=== PATIENT | female | born 2000 | race Hispanic/Latino ===

== ENCOUNTER 2019-03-08 01:02 | Emergency (ER) | payer MEDICAID, SELFPAY ==
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
== END 2019-03-08 05:50 | disposition home or self-care (01) ==
LOC: ERS 01:02
DX: J45.901 Unspecified asthma with (acute) exacerbation (principal); F10.129 Alcohol abuse with intoxication, unspecified; F41.0 Panic disorder [episodic paroxysmal anxiety]; Z77.22 Contact with and (suspected) exposure to environmental tobacco smoke (acute) (chronic)
CPT/HCPCS: 96360

== ENCOUNTER 2019-03-23 04:28 | Emergency (ER) | payer MEDICAID, SELFPAY ==
[2019-03-23] MEDS ORDERED: predniSONE 20 MG TAB ONE (05:10)
[2019-03-23] MEDS ORDERED: Ondansetron ODT 8 MG TAB ONE (05:14)
[2019-03-23 05:52] LABS: #Basophils 0.1 thou/uL (0.0-0.2); #Eosinphils 0.2 thou/uL (0.0-0.7); #Lymphocytes 2.5 thou/uL (1.20-3.40); #Monocytes 0.3 thou/uL (0.11-0.59); #Neutrophils 3.9 thou/uL (1.40-6.50); %Basophils 1.3 % (0.0-1.0); %Eosinophils 2.4 % (0.0-10.0); %Lymphocytes 35.2 % (28.0-48.0); %Monocytes 4.8 % (0.0-4.0); %Neutrophils 56.3 % (31.0-61.0); Hemoglobin 12.6 g/dL (12.0-16.0); Mean Corpuscular HGB CONC 34.1 g/dL (32.0-36.0); Mean Corpuscular Volume 93.9 fL (78.0-98.0); Mean Platelet Volume 7.1 fL (7.4-10.4); Platelet Count 324 thou/uL (130-400); RBC Distribution Width 12.3 % (11.5-14.5); Red Blood Cell (RBC) Count 3.92 mill/uL (4.00-5.20)
[2019-03-23 05:54] LABS: BHCG - Serum Negative (NEGATIVE); Pregs Control Background? CLEAR/WHITE (CLR/WHITE); Pregs Control Bar Appear? YES (CONTROL BAR)
[2019-03-23 06:05] LABS: Albumin 4.5 g/dL (3.5-5.0)
[2019-03-23 06:06] LABS: Chloride 107 mmol/L (98-107); Potassium 3.5 mmol/L (3.5-5.1); Sodium 141 mmol/L (136-145)
[2019-03-23 06:07] LABS: Globulin 3.3 g/dL (2.4-3.5); Glucose 125 mg/dL (70-105); Protein, Total 7.8 g/dL (6.0-8.3)
[2019-03-23 06:09] LABS: Anion Gap 15 mmol/L (10-20); Bilirubin, Total 0.5 mg/dL (0.2-1.2); Carbon Dioxide 23 mmol/L (22-29)
[2019-03-23 06:10] LABS: Alkaline Phosphatase 75 U/L (40-150); Calc. Creatinine Clearance 0 mL/min (70-130); Estimated GFR-MDRD 86
[2019-03-23 06:11] LABS: BUN (Urea Nitrogen) 5 mg/dL (7.0-18.7)
[2019-03-23 06:12] LABS: AST (SGOT) 18 U/L (5-34)
[2019-03-23 06:13] LABS: ALT (SGPT) 21 U/L (8-55)
[2019-03-23] MEDS ORDERED: Ketorolac Tromethamine 60 MG/2 ML VIAL ONE (06:19)
[2019-03-23 06:45] LABS: Bilirubin Negative (Negative); Blood, Urine Small (Negative); Glucose, Urine (Dipstick) Negative (Negative); Leukocyte Trace (Negative); Nitrite Negative (Negative); Protein, Urine (Dipstick) Negative (Neg-Trace); Urobilinogen 0.2 mg/dL (Less than 2)
[2019-03-23 06:49] LABS: Pregnancy Test - Urine (BHCG) Negative (Negative); Pregu Control Background? CLEAR/WHITE (CLR/WHITE); Pregu Control Bar Appear? YES (CONTROL BAR); Specific Gravity 1.004 (1.002-1.036)
[2019-03-23 06:57] LABS: RBC/HPF 0-3 HPF (0-3); Squamous Epithelial 0-3 HPF (0-3); WBC/HPF 0-3 HPF (0-3)
[2019-03-23 06:58] LABS: Bacteria/HPF 1+ HPF (None Seen); Clarity Clear (Clear)
[2019-03-23 06:59] LABS: Amphetamine Not Detected (NotDetected); Barbiturates Screen Not Detected (NotDetected); Benzodiazepine Screen Not Detected (NotDetected); Cocaine Metabolite Screen Not Detected (NotDetected); Medtox Control Line Valid? VALID (VALID); Medtox Reader # READER 4; Methadone Not Detected (NotDetected); Methamphetamine Not Detected (NotDetected); Opiate Screen Not Detected (NotDetected); Oxycodone Screen Not Detected (NotDetected); Phencyclidine (PCP) Not Detected (NotDetected); THC/Cannabinoid Screen Not Detected (NotDetected); Tricyclic Screen Not Detected (NotDetected)
[2019-03-23] MEDS ORDERED: Metoclopramide HCl 10 MG/2 ML VIAL ONE (07:20)
--- NOTE | 2019-03-23 07:55 | RAD ---
Portable frontal chest radiograph: 03/23/2019 COMPARISON: 02/22/2019 HISTORY: Asthma exacerbation FINDINGS: Lungs are clear. Heart and mediastinal contours appear within normal limits. IMPRESSION: No acute findings.
[2019-03-23 08:26] LABS: Acetaminophen Less than 6.0 mcg/mL (10.0-30.0); Alcohol 134 mg/dL (Less than 10); Salicylate Less than 8.0 mg/dL (15.0-30.0)
[2019-03-23] MEDS ORDERED: Acetaminophen 500 MG TAB ONE (09:19)
[2019-03-23] MEDS ORDERED: Activated Charcoal/Sorbitol 25 GM/120 ML TUBE ONE (12:36)
== END 2019-03-23 10:30 | disposition home or self-care (01) ==
LOC: ERS 04:28
DX: J45.901 Unspecified asthma with (acute) exacerbation (principal); F10.129 Alcohol abuse with intoxication, unspecified; F41.9 Anxiety disorder, unspecified; Z79.899 Other long term (current) drug therapy; Z79.51 Long term (current) use of inhaled steroids
CPT/HCPCS: 36415; 71045; 80053; 80306; 80307; 81003; 81015; 81025; 82550; 84443; 84703; 85025; 93005; 94640; 96365; 96372; J1885; J2765; J7512; J7620

== ENCOUNTER 2019-05-30 16:20 | Emergency (ER) | payer SELFPAY ==
[2019-05-30 17:17] LABS: #Basophils 0.1 thou/uL (0.0-0.2); #Eosinphils 0.1 thou/uL (0.0-0.7); #Monocytes 0.3 thou/uL (0.11-0.59); #Neutrophils 4.7 thou/uL (1.40-6.50); %Basophils 1.3 % (0.0-1.0); %Eosinophils 1.9 % (0.0-10.0); %Lymphocytes 27.2 % (28.0-48.0); %Monocytes 4.4 % (0.0-4.0); %Neutrophils 65.3 % (31.0-61.0); Hemoglobin 12.5 g/dL (12.0-16.0); Mean Corpuscular HGB CONC 33.6 g/dL (32.0-36.0); Mean Corpuscular Hemoglobin 30.5 pg (25.0-35.0); Mean Corpuscular Volume 90.8 fL (78.0-98.0); Mean Platelet Volume 7.4 fL (7.4-10.4); Platelet Count 314 thou/uL (130-400); RBC Distribution Width 11.7 % (11.5-14.5); Red Blood Cell (RBC) Count 4.09 mill/uL (4.00-5.20); White Blood Cell (WBC) Count 7.2 thou/uL (4.8-10.8)
[2019-05-30 17:27] LABS: BHCG - Serum Negative (NEGATIVE); Pregs Control Background? CLEAR/WHITE (CLR/WHITE); Pregs Control Bar Appear? YES (CONTROL BAR)
[2019-05-30 17:32] LABS: Bilirubin Negative (Negative); Blood, Urine Negative (Negative); Clarity Clear (Clear); Glucose, Urine (Dipstick) Normal (Negative); Leukocyte 75 Leu/uL (Negative); Nitrite Negative (Negative); Protein, Urine (Dipstick) Negative (Neg-Trace); RBC/HPF 0-3 HPF (0-3); Squamous Epithelial 0-3 HPF (0-3)
[2019-05-30 17:34] LABS: Pregnancy Test - Urine (BHCG) Negative (Negative); Pregu Control Background? CLEAR/WHITE (CLR/WHITE); Pregu Control Bar Appear? YES (CONTROL BAR); Specific Gravity 1.026 (1.002-1.036)
[2019-05-30 17:38] LABS: ALT (SGPT) 25 U/L (8-55); AST (SGOT) 17 U/L (5-34); Albumin 4.7 g/dL (3.5-5.0); Alkaline Phosphatase 69 U/L (40-100); Anion Gap 11 mmol/L (10-20); BUN (Urea Nitrogen) 9 mg/dL (7.0-18.7); Bilirubin, Total 1.1 mg/dL (0.2-1.2); Calc. Creatinine Clearance 0 mL/min (70-130); Calcium 9.4 mg/dL (7.8-10.44); Carbon Dioxide 27 mmol/L (22-29); Chloride 103 mmol/L (98-107); Estimated GFR-MDRD Greater than 90; Globulin 3.6 g/dL (2.4-3.5); Glucose 92 mg/dL (70-105); Potassium 3.9 mmol/L (3.5-5.1); Protein, Total 8.3 g/dL (6.0-8.3); Sodium 137 mmol/L (136-145)
[2019-05-30 17:41] LABS: Bacteria/HPF 2+ HPF (None Seen)
== END 2019-05-30 18:20 | disposition home or self-care (01) ==
LOC: ERS 16:20
DX: R10.30 Lower abdominal pain, unspecified (principal); J45.909 Unspecified asthma, uncomplicated; F41.9 Anxiety disorder, unspecified; Z79.899 Other long term (current) drug therapy; Z79.51 Long term (current) use of inhaled steroids
CPT/HCPCS: 36415; 80053; 81003; 81015; 81025; 84703; 85025; 99284

== ENCOUNTER 2019-06-30 10:11 | Emergency (ER) | payer SELFPAY ==
[2019-06-30 12:56] LABS: #Eosinphils 0.1 thou/uL (0.0-0.7); #Lymphocytes 1.5 thou/uL (1.20-3.40); #Monocytes 0.4 thou/uL (0.11-0.59); #Neutrophils 4.9 thou/uL (1.40-6.50); %Basophils 0.2 % (0.0-1.0); %Eosinophils 1.6 % (0.0-10.0); %Lymphocytes 22.1 % (28.0-48.0); %Monocytes 5.4 % (0.0-4.0); %Neutrophils 70.7 % (31.0-61.0); Hemoglobin 12.8 g/dL (12.0-16.0); Mean Corpuscular HGB CONC 34.8 g/dL (32.0-36.0); Mean Corpuscular Hemoglobin 31.3 pg (25.0-35.0); Mean Corpuscular Volume 89.9 fL (78.0-98.0); Platelet Count 259 thou/uL (130-400); Red Blood Cell (RBC) Count 4.08 mill/uL (4.00-5.20); White Blood Cell (WBC) Count 6.9 thou/uL (4.8-10.8)
[2019-06-30 13:01] LABS: BHCG - Serum Negative (NEGATIVE); Pregs Control Background? CLEAR/WHITE (CLR/WHITE); Pregs Control Bar Appear? YES (CONTROL BAR)
[2019-06-30] MEDS ORDERED: Ondansetron PF 4 MG/2 ML Vial ONE (13:01)
[2019-06-30 13:08] LABS: Bilirubin Negative (Negative); Blood, Urine Negative (Negative); Clarity Clear (Clear); Glucose, Urine (Dipstick) Normal (Negative); Leukocyte Negative Leu/uL (Negative); Nitrite Negative (Negative); Protein, Urine (Dipstick) 20 mg/dL (Neg-Trace)
[2019-06-30 13:13] LABS: ALT (SGPT) 23 U/L (8-55); AST (SGOT) 22 U/L (5-34); Albumin 4.9 g/dL (3.5-5.0); Alkaline Phosphatase 68 U/L (40-100); Anion Gap 13 mmol/L (10-20); BUN (Urea Nitrogen) 11 mg/dL (7.0-18.7); Bilirubin, Total 1.2 mg/dL (0.2-1.2); Calc. Creatinine Clearance 0 mL/min (70-130); Calcium 9.5 mg/dL (7.8-10.44); Carbon Dioxide 25 mmol/L (22-29); Chloride 103 mmol/L (98-107); Estimated GFR-MDRD Greater than 90; Globulin 3.5 g/dL (2.4-3.5); Glucose 80 mg/dL (70-105); Lipase 17 U/L (8-78); Potassium 3.8 mmol/L (3.5-5.1); Protein, Total 8.4 g/dL (6.0-8.3); Sodium 137 mmol/L (136-145)
[2019-06-30] MEDS ORDERED: Promethazine HCl 25 MG/ML VIAL ONE (13:56)
== END 2019-06-30 15:31 | disposition home or self-care (01) ==
LOC: ERS 10:11
DX: R11.2 Nausea with vomiting, unspecified (principal); J45.909 Unspecified asthma, uncomplicated; F41.9 Anxiety disorder, unspecified; Z79.899 Other long term (current) drug therapy
CPT/HCPCS: 36415; 80053; 81003; 83690; 84703; 85025; 96361; 96374; 96375; J2405; J2550

== ENCOUNTER 2019-11-15 22:10 | Emergency (ER) | payer BC ==
[2019-11-15 23:28] LABS: #Eosinphils 0.2 thou/uL (0.0-0.7); #Monocytes 0.6 thou/uL (0.11-0.59); #Neutrophils 5.5 thou/uL (1.40-6.50); %Basophils 0.5 % (0.0-1.0); %Eosinophils 2.5 % (0.0-10.0); %Lymphocytes 23.9 % (21.0-51.0); %Monocytes 6.8 % (0.0-10.0); %Neutrophils 66.3 % (42.0-75.0); Hemoglobin 11.3 g/dL (12.0-16.0); Mean Corpuscular HGB CONC 33.9 g/dL (32.0-36.0); Mean Corpuscular Hemoglobin 32.8 pg (27.0-31.0); Mean Corpuscular Volume 96.8 fL (78.0-98.0); Mean Platelet Volume 7.3 fL (7.4-10.4); Platelet Count 252 thou/uL (130-400); RBC Distribution Width 11.9 % (11.5-14.5); Red Blood Cell (RBC) Count 3.44 mill/uL (4.20-5.40); White Blood Cell (WBC) Count 8.4 thou/uL (4.8-10.8)
[2019-11-15 23:34] LABS: BHCG - Serum POSITIVE (NEGATIVE); Pregs Control Background? CLEAR/WHITE (CLR/WHITE); Pregs Control Bar Appear? YES (CONTROL BAR)
[2019-11-15 23:39] LABS: Bilirubin Negative (Negative); Blood, Urine Trace (Negative); Clarity Clear (Clear); Glucose, Urine (Dipstick) Normal (Negative); Leukocyte 25 Leu/uL (Negative); Nitrite Negative (Negative); Protein, Urine (Dipstick) 20 mg/dL (Neg-Trace); WBC/HPF 0-3 HPF (0-3)
[2019-11-15] MEDS ORDERED: Ondansetron PF 4 MG/2 ML Vial ONE (23:45)
[2019-11-15 23:46] LABS: Bacteria/HPF 1+ HPF (None Seen)
[2019-11-15] MEDS ORDERED: Morphine 4 MG/ML VIAL ONE (23:46)
[2019-11-15 23:50] LABS: ALT (SGPT) 23 U/L (8-55); AST (SGOT) 18 U/L (5-34); Albumin 4.7 g/dL (3.5-5.0); Alkaline Phosphatase 66 U/L (40-110); Anion Gap 12 mmol/L (10-20); BUN (Urea Nitrogen) 9 mg/dL (7.0-18.7); Bilirubin, Total 0.4 mg/dL (0.2-1.2); Calc. Creatinine Clearance 0 mL/min (70-130); Calcium 8.9 mg/dL (7.8-10.44); Carbon Dioxide 23 mmol/L (22-29); Chloride 107 mmol/L (98-107); Estimated GFR-MDRD Greater than 90; Globulin 3.4 g/dL (2.4-3.5); Glucose 82 mg/dL (70-105); Potassium 3.6 mmol/L (3.5-5.1); Protein, Total 8.1 g/dL (6.0-8.3); Sodium 138 mmol/L (136-145)
--- NOTE | 2019-11-16 00:10 | ULT ---
Exam: Transabdominal and endovaginal pelvic ultrasound HISTORY:Right lower quadrant pain, x3 days. Nausea, vomiting and constipation COMPARISON: None TECHNIQUE: Transabdominal and endovaginal imaging of the pelvis is performed. Ovaries are interrogate d with grayscale, color flow, Doppler imaging and spectral wave form analysis FINDINGS: Uterus: No myometrial masses. Uterus measurin.4 x 5.1 x 6.0 cm. Endometrium: There is a gestational sac, yolk sac and pole. [place]-rump length is 0.84 cm corres ponding to gestational age of 6 weeks 6 days heart tones: 131 bpm Subchorionic hemorrhage: None. Free fluid: None Right ovary: Normal echotexture Right ovary measurement: 2.6 x 1.4 x 1.9 cm Left ovary: Normal echotexture. Left ovary measurements: 2.0 x 3.3 x 2.1 cm Ovarian Doppler: There is vascular flow to the left and right ovary. IMPRESSION: 1. Single intrauterine gestation with heart tones. 2. Gestational age by crown-rump length is 6 weeks 6 days.
--- NOTE | 2019-11-16 09:03 | MRI ---
PRELIMINARY REPORT/[facility]/EMERGENCY AFTER HOURS PROCEDURE EXAM: MR Abdomen and Pelvis without IV contrast. CLINICAL HISTORY: RLQ ABD PAIN. POSITIVE TEST. NAUSEA, VOMITING, CONSTIPATION TECHNIQUE: Multisequence, multiplanar magnetic resonance images of the abdomen and pelvis without intravenous co ntrast. Series acquired: 2 - T2_HASTE_COR_MBH - 45 imgs - ABDOMEN - TR: 1000.0 - TE: 114.0 - ET: 256.0 - Thk: 3.5 3 - T2_HASTE_TRA_MBH - 37 imgs - ABDOMEN - TR: 1130.0 - TE: 115.0 - ET: 256.0 - Thk: 5.0 5 - T2_HASTE_SAG_MBH - 34 imgs - ABDOMEN - TR: 779.0 - TE: 118.0 - ET: 256.0 - Thk: 4.5 6 - T2_HASTE_TRA_MBH_FS - 37 imgs - ABDOMEN - TR: 1140.0 - TE: 115.0 - ET: 256.0 - Thk: 5.0 11 - EP2D_DIFF_B50_100_800_TRA_P2_BH - 45 imgs - ABDOMEN - TR: 1700.0 - TE: 80.0 - ET: 1.0 - Thk: 6. 0 12 - EP2D_DIFF_B50_100_800_TRA_P2_BH_ADC - 15 imgs - ABDOMEN - TR: 1700.0 - TE: 80.0 - ET: 1.0 - Thk : 6.0 13 - EP2D_DIFF_B50_100_800_TRA_P2_BH - 45 imgs - ABDOMEN - TR: 1700.0 - TE: 80.0 - ET: 1.0 - Thk: 6. 0 14 - EP2D_DIFF_B50_100_800_TRA_P2_BH_ADC - 15 imgs - ABDOMEN - TR: 1700.0 - TE: 80.0 - ET: 1.0 - Thk : 6.0 15 - EP2D_DIFF_B50_100_500_TRA_P2_BH - 45 imgs - ABDOMEN - TR: 1600.0 - TE: 75.0 - ET: 1.0 - Thk: 6. 0 16 - EP2D_DIFF_B50_100_500_TRA_P2_BH_ADC - 15 imgs - ABDOMEN - TR: 1600.0 - TE: 75.0 - ET: 1.0 - Thk : 6.0 17 - EP2D_DIFF_B50_100_500_TRA_P2_BH - 45 imgs - ABDOMEN - TR: 1700.0 - TE: 75.0 - ET: 1.0 - Thk: 6. 0 18 - EP2D_DIFF_B50_100_500_TRA_P2_BH_ADC - 15 imgs - ABDOMEN - TR: 1700.0 - TE: 75.0 - ET: 1.0 - Thk : 6.0 CONTRAST: Without COMPARISON: None provided. FINDINGS: Single intrauterine gestational sac visualized. Normal appearance of both ovaries. Trace amount of free fluid in the pelvis. The appendix is normal in appearance. No inflammatory changes in the right lower quadrant. The T2 appearance of the visualized abdominal viscera is normal. The visualized bones are unremarkable. IMPRESSION: Gravid uterus. Normal appendix. No inflammatory changes in the right lower quadrant. Trace free fluid in the pelvi s which may be physiologic. ELECTRONICALLY SIGNED BY: Asya Benton MD November 16, 2019 1:45:25 AM CDT This report is intended for review by the ordering physician only, in accordance of law. If you recei ve this report in error, please call [facility] at [phone]. FINAL REPORT MRI ABDOMEN WITHOUT CONTRAST: I agree with the preliminary report given by Dr. Asya Benton of [facility].
== END 2019-11-16 02:28 | disposition home or self-care (01) ==
LOC: ERS 22:10
DX: O99.89 Other specified diseases and conditions complicating pregnancy, childbirth and the puerperium (principal); R10.31 Right lower quadrant pain; O99.511 Diseases of the respiratory system complicating pregnancy, first trimester; J45.909 Unspecified asthma, uncomplicated; O99.341 Other mental disorders complicating pregnancy, first trimester; F41.9 Anxiety disorder, unspecified; Z77.22 Contact with and (suspected) exposure to environmental tobacco smoke (acute) (chronic); Z79.899 Other long term (current) drug therapy; Z3A.12 12 weeks gestation of pregnancy
CPT/HCPCS: 36415; 74181; 76856; 80053; 81003; 81015; 84702; 84703; 85025; 86900; 86901; 96374; 96375; J2270; J2405

== ENCOUNTER 2019-12-15 00:03 | Emergency (ER) | payer BC ==
[2019-12-15] MEDS ORDERED: Fentanyl 100 MCG/2 ML VIAL ONE (00:31)
[2019-12-15] MEDS ORDERED: Promethazine HCl 25 MG/ML VIAL ONE (01:45)
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
== END 2019-12-15 04:08 | disposition home or self-care (01) ==
LOC: ERS 00:03
DX: O9A.211 Injury, poisoning and certain other consequences of external causes complicating pregnancy, first trimester (principal); S16.1XXA Strain of muscle, fascia and tendon at neck level, initial encounter; S46.912A Strain of unspecified muscle, fascia and tendon at shoulder and upper arm level, left arm, initial encounter; O99.511 Diseases of the respiratory system complicating pregnancy, first trimester; J45.909 Unspecified asthma, uncomplicated; O99.341 Other mental disorders complicating pregnancy, first trimester; F41.9 Anxiety disorder, unspecified; Z77.22 Contact with and (suspected) exposure to environmental tobacco smoke (acute) (chronic); Z3A.12 12 weeks gestation of pregnancy
CPT/HCPCS: 71045; 72040; 72070; 96365; 96366; 96375; J2550; J3010

== ENCOUNTER 2020-04-07 06:46 | Outpatient (CLI) | payer BC, MEDICAID ==
--- NOTE | 2020-04-07 08:55 | ULT ---
EXAM: OB ultrasound COMPARISON: None HISTORY: female patient. Evaluate anatomy and cervical length. TECHNIQUE: Multiplanar grayscale and color Doppler transabdominal sonographic images are obtained. FINDINGS: There is a single intrauterine gestation in cephalic presentation. Cardiac Doppler demonstr ates heart tones with a heart rate of 132 beats per minute. The placenta is located posteriorly without evidence of placenta previa. There is a normal amount of amniotic fluid with an a mniotic fluid index of 18.74 centimeters. The cervical length based on transabdominal imaging measures 4.6 centimeters. biometry measurements: BPD 7.68 cm -- 30 weeks 6 days HC 27.09 cm -- 29 weeks 4 days AC 24.27 cm -- 28 weeks 4 days FL 5.54 cm -- 28 weeks 6 days The estimated gestational age by ultrasound is 29 weeks 4 days with an YUSRA on06/19/2020. Gestational age by the last menstrual period is 29 weeks. The estimated weight by ultrasound is 1296 g (2 pounds, 14 ounces). This represents 32 percenti le for weight. The heart is difficult to visualize, there is suggestion of a 4 chambered heart. The cerebellum, visu alized portions of the spine, kidneys, urinary bladder, and cord insertion demonstrate a normal sonographic appearance. A three-vessel cord is not visualized, but there is flow on either side of the urinary bladder sugges ting a three-vessel cord.. No anomalies are seen. Adnexal structures are not well visualized on this exam, and only shadowing from bowel gas is seen. IMPRESSION: 1. Single intrauterine gestation in cephalic presentation with heart tones documented. Estimat ed gestational age by ultrasound is 29 weeks 4 days with YUSRA on 06/19/2020. 2. Estimated weight is 1296 g (2 pounds, 14 ounces). 3. Amniotic fluid index is 18.74 centimeters.
== END 2020-04-07 06:47 | disposition home or self-care (01) ==
LOC: BICULT 06:46
PROVIDERS: ATTEND Nurse Practitioner
DX: Z34.03 Encounter for supervision of normal first pregnancy, third trimester (principal); Z3A.29 29 weeks gestation of pregnancy
CPT/HCPCS: 76805

== ENCOUNTER 2020-04-09 20:50 | Day surgery (SDC) | payer BC, OTHER ==
[2020-04-09 20:56] VITALS: BMI 35.2
[2020-04-09 20:58] VITALS: BP 135/75
[2020-04-09] MEDS ORDERED: hydrALAZINE 20 MG/ML VIAL SLOW IVP PRN (21:39)
[2020-04-09 22:09] LABS: Bacteria/HPF None Seen HPF (None Seen); Bilirubin Negative (Negative); Blood, Urine Negative (Negative); Clarity Turbid (Clear); Glucose, Urine (Dipstick) Normal (Negative); Ketone, Urine 20 mg/dL (Negative); Leukocyte Negative Leu/uL (Negative); Nitrite Negative (Negative); Protein, Urine (Dipstick) 20 mg/dL (Neg-Trace); RBC/HPF 0-3 HPF (0-3); Specific Gravity, Urine 1.024 (1.002-1.036); Squamous Epithelial 0-3 HPF (0-3); Urobilinogen Normal mg/dL (Less than 2); WBC/HPF 0-3 HPF (0-3); pH, Urine 7.5 (5.0-9.0)
--- NOTE | 2020-04-09 22:37 | PRG ---
DATE OF SERVICE: 04/09/2020 PRIMARY OB: Tristan Ayala MD CHIEF COMPLAINT: Abdominal pain and vaginal bleeding. HISTORY OF PRESENT ILLNESS: Patient is a 19-year-old, G1, P0 female, with an intrauterine at 27 weeks' gestation, complaining of lower abdominal pain that began on Friday and worsened today when she woke up. States the pain is very sharp, lower abdomen making it very difficult for her to move particularly getting out of bed and rolling over. Patient reports she had an episode of bleeding when she went to the bathroom today. She says it is mainly when she wiped, but she also reports drip. She reports history of bleeding hemorrhoids, but denies rectal bleeding earlier today. Patient reports that she works on her feet at [email or web address]. She reports intercourse in the last 24 hours. She denies fever, cough, headache, chest pain, shortness of breath, nausea, vomiting, diarrhea, constipation, other discharge, urinary urgency or frequency. PAST MEDICAL HISTORY: Asthma and irritable bowel syndrome. PAST SURGICAL HISTORY: She has had upper endoscopy and colonoscopy. PSYCHIATRIC HISTORY: Anxiety. SOCIAL HISTORY: Patient works at [email or web address]. Denies drug, alcohol, or tobacco use. ALLERGIES: NO KNOWN DRUG ALLERGIES. MEDICATIONS: Albuterol inhaler. PHYSICAL EXAMINATION: VITAL SIGNS: Blood pressure 135/75, heart rate of 87, and respiratory rate of 18. GENERAL: She appears to be in no acute distress. She is alert, oriented, cooperative, and pleasant to interact with. HEAD: Normocephalic and atraumatic. LUNGS: Clear to auscultation bilaterally. HEART: Has regular rate and rhythm. ABDOMEN: Gravid and soft. She does have exquisite tenderness in her lower pelvic area with palpation and deviation of the uterus. Her fundus is nontender. Upper abdomen is nontender. PELVIS: Vulva is without masses, lesions, or erythema. Vagina is moist. She has no evidence of bleeding. Cervix is visibly closed. Of note, she has a very long ribbon-like piece of vaginal tissue. This seems to originate from the most upper regions of her vagina, it is about a centimeter wide and it can be drawn to her introitus. Patient has no sensation of this tissue. heart tracing shows a baseline in the 130s with moderate long-term variability, appropriate for 27 weeks' gestation. No contractions visible on the monitor. VP3 is collected and sent for evaluation and is still pending results as is the urinalysis. ASSESSMENT AND PLAN: Patient is a 19-year-old, G1, P0 female with an intrauterine at 27 weeks and 5 days, presenting with abdominal pain and an episode of bleeding. Patient has no evidence of bleeding per her vagina or her vestibular region. Cervix is closed and there is no evidence of labor. Her pains are most consistent with musculoskeletal pains of , likely secondary to intercourse and her work responsibilities. Fetus has an appropriate tracing for gestational age. Anticipate discharge home once VP3 and UA have returned. both tests neg Job ID: [id number] MTDD
== END 2020-04-09 22:47 | disposition home health service (06) ==
LOC: SDC/OP 20:50
PROVIDERS: ATTEND Obstetrics & Gynecology
DX: O99.891 Other specified diseases and conditions complicating pregnancy (principal); R10.30 Lower abdominal pain, unspecified; O46.92 Antepartum hemorrhage, unspecified, second trimester; O99.512 Diseases of the respiratory system complicating pregnancy, second trimester; J45.909 Unspecified asthma, uncomplicated; O99.612 Diseases of the digestive system complicating pregnancy, second trimester; K58.9 Irritable bowel syndrome, unspecified; Z3A.27 27 weeks gestation of pregnancy; Z79.899 Other long term (current) drug therapy
CPT/HCPCS: 81001; 87480; 87510; 87660

== ENCOUNTER 2020-06-14 02:50 | Inpatient (IN) | payer BC, OTHER ==
[2020-06-14 03:31] VITALS: BMI 36.3
[2020-06-14] MEDS ORDERED: HYDROcodone/Acetaminophen 5/325 mg Tablet PO PRN ×4 (03:48→18:16)
[2020-06-14] MEDS ORDERED: Acetaminophen 500 MG TAB PO PRN (03:48)
[2020-06-14] MEDS ORDERED: Lidocaine 1% (PF) 30 ML VIAL SC PRN (03:48)
[2020-06-14] MEDS ORDERED: Promethazine HCl 25 MG/ML VIAL IM PRN ×4 (03:48→15:18)
[2020-06-14] MEDS ORDERED: NS / Oxytocin 40 units/1000ml 1,000 ML IV PRN (03:48)
[2020-06-14] MEDS ORDERED: Meperidine HCl/PF 25 MG/ML VIAL IM/IV PRN (03:48)
[2020-06-14] MEDS ORDERED: Ibuprofen 800 MG TAB PO PRN (03:48)
[2020-06-14] MEDS ORDERED: Butorphanol Tartrate 1 MG/ML VIAL SLOW IVP PRN (03:48)
[2020-06-14] MEDS ORDERED: hydrALAZINE 20 MG/ML VIAL SLOW IVP PRN (03:48)
[2020-06-14] MEDS ORDERED: NS w/ Oxytocin 30 units 500 ML IVPB SCH (04:00)
[2020-06-14] MEDS ORDERED: Lactated Ringer's 1,000 ML IV SCH (04:00)
[2020-06-14] MEDS ORDERED: DISCONTINUE ALL PREVIOUS NARCOTICS FS SCH (04:15)
[2020-06-14] MEDS ORDERED: Bupivacaine 0.5% 20 ML, fentaNYL Citrate/PF 400 MCG in Sodium Chloride 0.9% 72 ML EPIDURAL SCH (04:15)
[2020-06-14 04:27] LABS: Hemoglobin 11.6 g/dL (12.0-16.0); Mean Corpuscular HGB CONC 34.9 g/dL (32.0-36.0); Mean Corpuscular Hemoglobin 30.7 pg (27.0-31.0); Mean Corpuscular Volume 87.9 fL (78.0-98.0); Mean Platelet Volume 8.2 fL (7.4-10.4); Platelet Count 320 thou/uL (130-400); RBC Distribution Width 12.6 % (11.5-14.5); White Blood Cell (WBC) Count 14.4 thou/uL (4.8-10.8)
[2020-06-14] MEDS ORDERED: Bupivacaine 0.5% 10 ML VIAL ONE ×2 (05:00→14:03)
[2020-06-14] MEDS ORDERED: Fentanyl 100 MCG/2 ML VIAL ONE (05:00)
[2020-06-14 05:03] LABS: HBSAg Index 0.17 S/CO (0-0.99); Hep B Surf Ag Non-Reactive S/CO (NonReactive)
[2020-06-14] MEDS ORDERED: Potassium Chloride 20 MEQ TAB PO SCH (05:30)
[2020-06-14] MEDS ORDERED: Ondansetron PF 4 MG/2 ML Vial IVP PRN ×4 (05:33→18:16)
[2020-06-14] MEDS ORDERED: ePHEDrine 50 MG/ML VIAL SLOW IVP PRN (05:33)
[2020-06-14] MEDS ORDERED: diphenhydrAMINE 50 MG/ML VIAL IVP PRN ×3 (05:33→15:18)
[2020-06-14] MEDS ORDERED: Naloxone HCl 0.4 mg/ml Vial IVP PRN ×4 (05:33→13:52)
[2020-06-14] MEDS ORDERED: Acetaminophen 325 MG TAB PO PRN (05:33)
[2020-06-14] MEDS ORDERED: Fentanyl 100 MCG/2 ML VIAL I-THECAL ONE (05:33)
[2020-06-14] MEDS ORDERED: Lactated Ringer's 500 ML IV PRN (05:33)
[2020-06-14] MEDS ORDERED: Bupivacaine 0.5% 10 ML VIAL FS SCH (05:35)
[2020-06-14] MEDS: Ondansetron PF 4 MG/2 ML Vial IVP PRN ×2 (05:42→11:36)
[2020-06-14] MEDS ORDERED: Fentanyl 4 mcg/Bupivacaine 0.1% Cassette 100 ML EPIDURAL SCH (05:45)
[2020-06-14] MEDS ORDERED: Communication Order-Pharmacy FS SCH ×3 (05:45→15:30)
[2020-06-14 06:13] LABS: Syphilis Antibody Nonreactive (Nonreactive); Syphilis Antibody Index 0.05 S/CO (<1.00 Non-Reactive)
[2020-06-14] MEDS ORDERED: PROPOFOL 200 MG/20 ML VIAL ONE (09:11)
[2020-06-14] MEDS ORDERED: Succinylcholine 200 MG/10 ml SYRINGE FS ONE (09:11)
[2020-06-14 10:04] LABS: SARS-CoV-2 MS2 Positive; SARS-CoV-2 N Gene Negative; SARS-CoV-2 S Gene Negative; SARS-CoV-2 by NAA Not Detected (NotDetected); SARS-CoV-2 orf1ab Negative
[2020-06-14] MEDS: Lactated Ringer's 1,000 ML IV SCH ×3 (13:44→23:33)
[2020-06-14] MEDS ORDERED: Promethazine HCl 25 MG SUPP PR PRN (13:52)
[2020-06-14] MEDS ORDERED: HYDROmorphone 2 MG/ML VIAL SLOW IVP PRN (13:52)
[2020-06-14] MEDS ORDERED: L&D-Morphine 4 MG/ML VIAL SLOW IVP PRN (13:52)
[2020-06-14] MEDS ORDERED: Ondansetron HCl/PF 4 MG/2 ML Vial IVP PRN (13:52)
[2020-06-14] MEDS ORDERED: Naloxone HCl 0.4 mg/ml Vial IV PRN ×2 (13:52→15:18)
[2020-06-14] MEDS ORDERED: Ketorolac Tromethamine 30 MG/ML VIAL IVP PRN (13:52)
[2020-06-14] MEDS ORDERED: Meperidine HCl/PF 25 MG/ML VIAL SLOW IVP PRN (13:52)
[2020-06-14] MEDS ORDERED: Famotidine/PF 20 mg/2ml Vial SLOW IVP PRN (13:57)
[2020-06-14] MEDS ORDERED: Bicitra 30 ML UDCUP PO PRN (13:57)
[2020-06-14] MEDS ORDERED: Azithromycin 500 MG in Sodium Chloride 0.9% 250 ML 250 ML IVPB SCH (14:00)
[2020-06-14] MEDS ORDERED: CEFAZOLIN 2 GM in Premix Bag 1 BAG IVPB SCH (14:00)
[2020-06-14] MEDS ORDERED: Ketorolac Tromethamine 30 MG/ML VIAL IVP SCH ×2 (14:00→18:30)
[2020-06-14] MEDS ORDERED: Morphine PF 10 MG/10 ML VIAL ONE (14:01)
[2020-06-14] MEDS ORDERED: Lidocaine 2% MPF 10 ML AMP (For Epidural Use) ONE (14:03)
[2020-06-14] MEDS ORDERED: Oxytocin 10 UNITS/ML VIAL ONE (14:03)
[2020-06-14] MEDS ORDERED: Ondansetron PF 4 MG/2 ML Vial ONE (14:03)
[2020-06-14] MEDS ORDERED: Azithromycin 500 MG VIAL ONE (14:11)
[2020-06-14 14:44] LABS: Actual Bicarbonate (HCO3v) 29 mEq/L (22-28); Base Excess -0.5 mEq/L (-2.0 to +3.0)
[2020-06-14 14:47] LABS: pH (Cord, venous) 7.24 (7.32-7.43)
[2020-06-14] MEDS ORDERED: PHENYLEPHRINE-NS 100 MCG/ML 10 ML SYRINGE ONE (14:51)
[2020-06-14 14:53] LABS: Actual Bicarbonate (HCO3a) 29.5 mEq/L (22-28); Base Excess (BEa) -0.8 mEq/L (-2.0 to +3.0)
--- NOTE | 2020-06-14 15:16 | PDOC.OPDEL ---
OB Operative/Delivery Note - Additional Findings/Plan Compilations/Other Findings: Date of Procedure: 06/14/2020 Primary Surgeon: Dr. Tristan Ayala Genetic Counselor Surgeon: Dr. Derick Smith Procedure: Primary low transverse caesarean section Preoperative Diagnosis: 1) Non-reassuring heart tracing 2) Term in labor Postoperative Diagnosis: 1) same as above Anesthesia: General Indications: The patient is a 19 year old G1,P0 female at 38.5 weeks gestation who presented for contractions and was kept for onset of labor at term. During labor distress was noted by non reassuring heart tracing prompting decision for primary LTCS. Procedure in Detail: After risks, benefits, and alternatives were explained to the patient, she gave informed consent. Pre-operative antibiotics included Cefazolin 2 gram IV and 500mg Azithro. The patient was taken to the operating room after her epidural anesthesia was dosed, however, this was inadequate for surgery, and because we didn't wish to wait another 10-15 minutes for epidural anesthesis to be reattempted in light of her FHTs, she was converted to general anesthesia. She was placed in the supine position with a left tilt and prepped and draped in usual sterile fashion. A Pfannenstiel incision was made with a scalpel and carried down to the level of the fascia which was sharply nicked. The fascial cut was extended bilaterally with Verdin sissors. The inferior and superior edges of the cut fascial edges were elevated with Annemarie clamps and the underlying rectus muscles were sharply and bluntly dissected free. The recti were divided digitally and retracted manually. The peritoneum was entered bluntly and retracted manually. Bladder blade was placed. A low transverse score was made with the scalpel and the uterus was entered in the midline with the scalpel. Clear fluid was seen. The hysterotomy was extended manually. The infant was noted to be vertex and was easily delivered by fundal pressure. A single nuchal was reduced. Cord clamped and cut and grossly normal male was handed to waiting nurse and marketing program coordinator. Cord blood and gas were obtained. Placenta was manually extracted, found to be intact with 3 vessel cord and discarded. The uterus was externalized and the endometrium was curetted with a dry lap. Bladder blade was replaced and the uterus was closed with a running locking #1 monocryl suture. Oozing was noted along the serosal edge which was addressed with a running non locking vertical imbricating layer. Following this hemostasis was noted. Seprafilm was placed along the incision and anterior aspect of the uterus. The abdomen was irrigated with saline and suctioned free of clots. The uterus was internalized and the hysterotomy was again noted to be hemostatic. The peritoneum was closed with a loose running 3-0 vircyl. The fascia was closed with a running non-locking 0-PDS suture. The subcutaneous tissue was irrigated and approximated using interrupted 2-0 plain sutures. The skin was approximated with rebeca and a pressure dressing was placed. All counts were correct. The patient tolerated the procedure well and was taken to the recovery room in stable condition. Quantified Blood Loss: 805 ml Complications: None Specimens: Cord blood sent to lab for blood type Findings: Grossly normal male infant with Apgars of 4 and 9. Grossly normal placenta with 3 vessel cord discarded. Drains: Lozano to gravity draining clear urine
[2020-06-14] MEDS ORDERED: diphenhydrAMINE 25 MG CAP PO PRN ×2 (15:18→18:16)
[2020-06-14] MEDS ORDERED: diphenhydrAMINE 50 MG/ML VIAL IM PRN (15:18)
[2020-06-14] MEDS ORDERED: fentaNYL Citrate/PF 2,000 MCG in Sodium Chloride 0.9% 60 ML IV PRN (15:18)
[2020-06-14] MEDS ORDERED: Zolpidem Tartrate 5 MG TAB PO PRN (15:18)
[2020-06-14] MEDS ORDERED: Meperidine HCl/PF 25 MG/ML VIAL ONE (15:38)
[2020-06-14] MEDS ORDERED: Morphine 4 MG/ML VIAL ONE (17:02)
[2020-06-14] MEDS ORDERED: Meperidine HCl/PF 25 MG/ML VIAL IM PRN (18:16)
[2020-06-14] MEDS ORDERED: Lanolin Ointment 7 GM TUBE TOP PRN (18:16)
[2020-06-14] MEDS ORDERED: NS / Oxytocin 40 units/1000ml 1,000 ML IV SCH (18:16)
[2020-06-14] MEDS ORDERED: Bisacodyl 10 MG SUPP PR PRN (18:16)
[2020-06-14] MEDS ORDERED: Ketorolac Tromethamine 30 MG/ML VIAL ONE (18:22)
[2020-06-14] MEDS: Ketorolac Tromethamine 30 MG/ML VIAL IVP SCH ×2 (18:29→23:34)
[2020-06-15] MEDS: Docusate Calcium (SURFAK) 240 MG CAP PO SCH ×3 (08:06→19:54)
[2020-06-15] MEDS: Ferrous Sulfate 325 MG TAB PO SCH ×2 (08:06→18:25)
[2020-06-15] MEDS: Ketorolac Tromethamine 30 MG/ML VIAL IVP SCH (08:27)
[2020-06-15] MEDS: Simethicone Chewable 80 MG TAB PO PRN ×2 (08:33→19:54)
[2020-06-15 08:34] LABS: Hemoglobin 8.9 g/dL (12.0-16.0); Mean Corpuscular HGB CONC 34.3 g/dL (32.0-36.0); Mean Corpuscular Hemoglobin 31.3 pg (27.0-31.0); Mean Corpuscular Volume 91.3 fL (78.0-98.0); Mean Platelet Volume 7.7 fL (7.4-10.4); Platelet Count 196 thou/uL (130-400); RBC Distribution Width 12.6 % (11.5-14.5); Red Blood Cell (RBC) Count 2.83 mill/uL (4.20-5.40); White Blood Cell (WBC) Count 11.9 thou/uL (4.8-10.8)
[2020-06-15] MEDS ORDERED: Adacel (T-DAP) 0.5 ML SYRINGE IM ONE (09:00)
[2020-06-15] MEDS ORDERED: Sodium Chloride 0.9% 10 ML ONE (10:37)
[2020-06-15] MEDS: Ibuprofen 800 MG TAB PO SCH ×2 (15:26→21:50)
[2020-06-15] MEDS: HYDROcodone/Acetaminophen 5/325 mg Tablet PO PRN ×2 (15:41→21:51)
[2020-06-15] MEDS: hydrALAZINE 20 MG/ML VIAL SLOW IVP SCH ×2 (19:29→19:30)
[2020-06-16] MEDS: HYDROcodone/Acetaminophen 5/325 mg Tablet PO PRN ×4 (05:30→22:35)
[2020-06-16] MEDS: Ibuprofen 800 MG TAB PO SCH ×3 (05:30→21:49)
[2020-06-16] MEDS: Simethicone Chewable 80 MG TAB PO PRN ×2 (05:42→20:32)
[2020-06-16] MEDS ORDERED: hydrALAZINE 20 MG/ML VIAL SLOW IVP SCH (09:30)
[2020-06-16] MEDS: Ferrous Sulfate 325 MG TAB PO SCH ×2 (09:32→18:25)
[2020-06-16] MEDS: Docusate Calcium (SURFAK) 240 MG CAP PO SCH ×2 (09:32→21:49)
[2020-06-16] MEDS ORDERED: hydrALAZINE 20 MG/ML VIAL SLOW IVP PRN (09:40)
[2020-06-17] MEDS: HYDROcodone/Acetaminophen 5/325 mg Tablet PO PRN ×5 (03:54→21:05)
[2020-06-17] MEDS ORDERED: hydrALAZINE 20 MG/ML VIAL SLOW IVP SCH (04:30)
[2020-06-17] MEDS: Sodium Chloride 0.9% 10 ML ONE (04:38)
[2020-06-17] MEDS ORDERED: hydrALAZINE 20 MG/ML VIAL SLOW IVP PRN ×2 (04:45→22:38)
[2020-06-17] MEDS ORDERED: Sodium Chloride 0.9% 10 ML ONE (05:02)
[2020-06-17] MEDS: Ibuprofen 800 MG TAB PO SCH ×3 (05:05→21:05)
[2020-06-17] MEDS: Docusate Calcium (SURFAK) 240 MG CAP PO SCH ×2 (08:18→21:05)
[2020-06-17] MEDS: Ferrous Sulfate 325 MG TAB PO SCH ×2 (08:18→18:35)
[2020-06-17] MEDS: Losartan/Hydrochlorothiazide 100 mg/25 mg Tablet PO SCH (09:06)
[2020-06-17] MEDS: Simethicone Chewable 80 MG TAB PO PRN (18:35)
[2020-06-17] MEDS ORDERED: cloNIDine 0.1 MG TAB PO PRN (22:37)
[2020-06-18] MEDS ORDERED: Sodium Chloride 0.9% 10 ML ONE (00:23)
[2020-06-18] MEDS: Sodium Chloride 0.9% 10 ML ONE (00:26)
[2020-06-18] MEDS: HYDROcodone/Acetaminophen 5/325 mg Tablet PO PRN (03:58)
[2020-06-18] MEDS: Ibuprofen 800 MG TAB PO SCH (05:52)
[2020-06-18] MEDS: Ferrous Sulfate 325 MG TAB PO SCH (08:56)
[2020-06-18] MEDS: Docusate Calcium (SURFAK) 240 MG CAP PO SCH (08:56)
[2020-06-18] MEDS: Losartan/Hydrochlorothiazide 100 mg/25 mg Tablet PO SCH (08:56)
[2020-06-18 09:33] VITALS: BP 139/78; TEMP 97.7
== END 2020-06-18 13:55 | disposition home or self-care (01) | DRG 788 ==
LOC: L&D/OP 02:50 → L&D 04:04 → 3SW 18:38
PROVIDERS: ADMIT Family Medicine; ATTEND Family Medicine
PROC: 10D00Z1 Extraction of Products of Conception, Low, Open Approach (ICD-10-PCS; principal; 2020-06-14)
DX: O76 Abnormality in fetal heart rate and rhythm complicating labor and delivery (principal); Z20.828 Contact with and (suspected) exposure to other viral communicable diseases; O32.4XX0 Maternal care for high head at term, not applicable or unspecified; Z3A.38 38 weeks gestation of pregnancy; Z37.0 Single live birth
CPT/HCPCS: 36415; 51702; 82805; 85027; 86780; 86850; 86900; 86901; 87340; 87635; 99285; J0360; J1885; J2001; J2175; J2270; J2405; J2590; J2704; J3010; J3490; U0003

== ENCOUNTER 2020-07-06 08:44 | Emergency (ER) | payer BC, OTHER ==
[2020-07-06] MEDS ORDERED: Morphine 4 MG/ML VIAL ONE (09:16)
[2020-07-06] MEDS ORDERED: Ondansetron PF 4 MG/2 ML Vial ONE (09:16)
[2020-07-06 09:26] LABS: #Eosinphils 0.1 thou/uL (0.0-0.7); #Lymphocytes 2.1 thou/uL (1.20-3.40); #Monocytes 0.3 thou/uL (0.11-0.59); #Neutrophils 5.5 thou/uL (1.40-6.50); %Basophils 0.5 % (0.0-1.0); %Eosinophils 1.8 % (0.0-10.0); %Lymphocytes 26.1 % (21.0-51.0); %Monocytes 3.9 % (0.0-10.0); %Neutrophils 67.8 % (42.0-75.0); Hemoglobin 11.7 g/dL (12.0-16.0); Mean Corpuscular HGB CONC 33.2 g/dL (32.0-36.0); Mean Corpuscular Hemoglobin 29.8 pg (27.0-31.0); Mean Corpuscular Volume 89.9 fL (78.0-98.0); Mean Platelet Volume 7.7 fL (7.4-10.4); Platelet Count 314 thou/uL (130-400); RBC Distribution Width 12.5 % (11.5-14.5); Red Blood Cell (RBC) Count 3.94 mill/uL (4.20-5.40); White Blood Cell (WBC) Count 8.1 thou/uL (4.8-10.8)
--- NOTE | 2020-07-06 09:47 | CT ---
CT ABDOMEN WITH CONTRAST CT PELVIS WITH CONTRAST: DATE: 07/06/2020 HISTORY: 19-year-old female 3 weeks status post presents with abdominal pain and nausea COMPARISON: 09/06/2014 TECHNIQUE: IV injection of iodinated contrast media: administered. Oral contrast media:Not administered FINDINGS: New finding of mural thickening, increased mural enhancement, and luminal distention of the gallbladd er. Minimal intrahepatic biliary ductal dilation. No other abnormality of liver, pancreas, adrenals, abdominal aorta, kidneys, spleen, or appendix. Heterogeneous attenuation/heterogeneous enhancement of enlarged uterus, consistent with st atus. incision wound/scar with the expected fat stranding in the subcutaneous fat anterior to low er portion of abdominal wall. No associated hematoma or abscess. No small bowel dilation, colonic diverticulitis, pneumoperitoneum, consolidation at lung bases, or pl eural effusion. IMPRESSION: 1) suspicious for acute cholecystitis. Recommend right upper quadrant abdominal ultrasound. 2) findings consistent with recent section. No evidence of complications.
[2020-07-06 09:53] LABS: ALT (SGPT) 28 U/L (8-55); AST (SGOT) 28 U/L (5-34); Albumin 4.3 g/dL (3.5-5.0); Alkaline Phosphatase 97 U/L (40-110); Anion Gap 16 mmol/L (10-20); BUN (Urea Nitrogen) 7 mg/dL (7.0-18.7); Bilirubin, Total 0.6 mg/dL (0.2-1.2); Calc. Creatinine Clearance 0 mL/min (70-130); Carbon Dioxide 23 mmol/L (22-29); Chloride 105 mmol/L (98-107); Globulin 3.4 g/dL (2.4-3.5); Glucose 108 mg/dL (70-105); Lipase 34 U/L (8-78); Potassium 3.7 mmol/L (3.5-5.1); Protein, Total 7.7 g/dL (6.0-8.3); Sodium 140 mmol/L (136-145)
[2020-07-06 10:07] LABS: BHCG - Serum Negative (NEGATIVE); Pregs Control Bar Appear? YES (CONTROL BAR)
[2020-07-06 10:21] LABS: Bilirubin Negative (Negative); Blood, Urine Negative (Negative); Clarity Clear (Clear); Glucose, Urine (Dipstick) Normal (Negative); Ketone, Urine Negative (Negative); Leukocyte Negative Leu/uL (Negative); Nitrite Negative (Negative); Protein, Urine (Dipstick) Negative (Neg-Trace); Urobilinogen Normal mg/dL (Less than 2); pH, Urine 6.5 (5.0-9.0)
[2020-07-06 10:23] LABS: Specific Gravity, Urine 1.047 (1.002-1.036)
--- NOTE | 2020-07-06 10:58 | ULT ---
EXAM: Right upper quadrant ultrasound PROVIDED CLINICAL HISTORY: Epigastric pain COMPARISON: CT abdomen and pelvis 07/16/2020 FINDINGS: Visualized portions of the pancreas appear normal. Liver demonstrates no mass or intrahepatic biliary ductal dilatation. The common duct is prominent for patient age, measuring 6 mm. Gallbladder demonstrates gallstones wit hout wall thickening or pericholecystic fluid. The combine mechanic describes a negative sonographic Ferreira's sign. The gallbladder appears prominently distended. Right kidney demonstrates no hydronephrosis or mass. IMPRESSION: 1. Distended gallbladder with gallstones present. No wall thickening or sonographic Ferreira sign. Cons ider HIDA scan as indicated. 2. Prominence of the common duct. Correlate with laboratory values to exclude biliary obstructive jacinto nge.
[2020-07-06 11:18] LABS: Pregs Control Background? CLEAR/WHITE (CLR/WHITE)
[2020-07-06 12:40] LABS: Lactic Acid 1.2 mmol/L (0.5-2.2)
== END 2020-07-06 12:15 | disposition home or self-care (01) ==
LOC: ERS 08:44
DX: K80.20 Calculus of gallbladder without cholecystitis without obstruction (principal); J45.909 Unspecified asthma, uncomplicated; Z79.51 Long term (current) use of inhaled steroids
CPT/HCPCS: 36415; 74177; 76705; 80053; 81003; 83605; 83690; 84703; 85025; 87040; 96374; 96375; J2270; J2405

== ENCOUNTER 2020-07-23 06:34 | Emergency (ER) | payer BC, OTHER ==
[2020-07-23] MEDS ORDERED: Ondansetron PF 4 MG/2 ML Vial ONE (06:50)
[2020-07-23] MEDS ORDERED: Morphine 4 MG/ML VIAL ONE (06:50)
[2020-07-23 07:11] LABS: #Eosinphils 0.1 thou/uL (0.0-0.7); #Lymphocytes 2.3 thou/uL (1.20-3.40); #Monocytes 0.4 thou/uL (0.11-0.59); #Neutrophils 5.5 thou/uL (1.40-6.50); %Basophils 0.6 % (0.0-1.0); %Eosinophils 1.6 % (0.0-10.0); %Lymphocytes 27.2 % (21.0-51.0); %Monocytes 4.6 % (0.0-10.0); %Neutrophils 66.1 % (42.0-75.0); Hemoglobin 11.4 g/dL (12.0-16.0); Mean Corpuscular HGB CONC 33.5 g/dL (32.0-36.0); Mean Corpuscular Hemoglobin 29.7 pg (27.0-31.0); Mean Corpuscular Volume 88.6 fL (78.0-98.0); Mean Platelet Volume 7.7 fL (7.4-10.4); Platelet Count 293 thou/uL (130-400); RBC Distribution Width 12.9 % (11.5-14.5); Red Blood Cell (RBC) Count 3.85 mill/uL (4.20-5.40); White Blood Cell (WBC) Count 8.3 thou/uL (4.8-10.8)
[2020-07-23 07:20] LABS: BHCG - Serum Negative (NEGATIVE); Pregs Control Background? CLEAR/WHITE (CLR/WHITE); Pregs Control Bar Appear? YES (CONTROL BAR)
[2020-07-23 07:33] LABS: ALT (SGPT) 40 U/L (8-55); AST (SGOT) 47 U/L (5-34); Albumin 4.4 g/dL (3.5-5.0); Alkaline Phosphatase 128 U/L (40-110); Anion Gap 16 mmol/L (10-20); BUN (Urea Nitrogen) 11 mg/dL (7.0-18.7); Bilirubin, Total 0.6 mg/dL (0.2-1.2); Calc. Creatinine Clearance 0 mL/min (70-130); Carbon Dioxide 23 mmol/L (22-29); Chloride 105 mmol/L (98-107); Globulin 3.2 g/dL (2.4-3.5); Glucose 107 mg/dL (70-105); Lipase 45 U/L (8-78); Potassium 3.6 mmol/L (3.5-5.1); Protein, Total 7.6 g/dL (6.0-8.3); Sodium 140 mmol/L (136-145)
--- NOTE | 2020-07-23 07:46 | ULT ---
RIGHT UPPER QUADRANT ULTRASOUND: Date: 07/23/2020 PROVIDED CLINICAL HISTORY: Right upper quadrant pain. FINDINGS: Comparison with 07/06/2020. The visualized IVC and pancreas appear normal. The liver demonstrates no mass or intrahepatic biliary ductal dilatation. The distal common duct is not dilated, measuring about 3-4 mm. Small gallstones a re seen without gallbladder wall thickening or pericholecystic fluid. Negative sonographic Ferreira's s ign. Right kidney demonstrates for hydronephrosis or mass. IMPRESSION: No evidence for an acute process. Gallstones are redemonstrated. POS: [place]
== END 2020-07-23 08:17 | disposition home or self-care (01) ==
LOC: ERS 06:34
DX: K80.20 Calculus of gallbladder without cholecystitis without obstruction (principal); J45.909 Unspecified asthma, uncomplicated
CPT/HCPCS: 76705; 80053; 83690; 84703; 85025; 96374; 96375; J2270; J2405

== ENCOUNTER 2020-11-04 14:10 | Emergency (ER) | payer OTHER | END 2020-11-04 15:14 | disposition home or self-care (01) | LOC: ERS 14:10 | DX: H60.13 Cellulitis of external ear, bilateral (principal); J45.909 Unspecified asthma, uncomplicated | CPT/HCPCS: 99283 ==

== ENCOUNTER 2021-05-04 18:14 | Emergency (ER) | payer OTHER ==
[2021-05-04] MEDS ORDERED: Albuterol 200 PUFF (6.7GM INHALER) ONE (20:35)
[2021-05-04] MEDS ORDERED: predniSONE 20 MG TAB ONE (21:15)
[2021-05-04 21:53] LABS: Pregnancy Test - Urine (BHCG) Negative (Negative); Pregu Control Background? CLEAR/WHITE (CLR/WHITE); Pregu Control Bar Appear? YES (CONTROL BAR); Specific Gravity 1.013 (1.002-1.036)
== END 2021-05-04 21:44 | disposition home or self-care (01) ==
LOC: ERS 18:14
DX: J45.901 Unspecified asthma with (acute) exacerbation (principal); B34.9 Viral infection, unspecified
CPT/HCPCS: 71046; 81025; 93005; 94664; J7512

== ENCOUNTER 2023-02-15 12:47 | Emergency (ER) | payer OTHER ==
[~2023-02-15 12:47] MED LIST: Iopamidol-370 76% 500 ML MDV (1 ML CHARGE) ONE
[2023-02-15] MEDS ORDERED: Famotidine 20 MG TAB ONE (13:16)
[2023-02-15] MEDS ORDERED: Ondansetron ODT 4 MG TAB ONE (13:16)
[2023-02-15] MEDS ORDERED: Sucralfate 1 GM/10 ML UDCUP ONE (13:17)
[2023-02-15] MEDS ORDERED: Mag-Al 1200 mg/1200 mg/30 ML UDCUP ONE (13:17)
[2023-02-15 13:26] LABS: #Eosinphils 0.1 thou/uL (0.0-0.7); #Monocytes 0.4 thou/uL (0.11-0.59); #Neutrophils 5.5 thou/uL (1.40-6.50); %Basophils 0.3 % (0.0-1.0); %Eosinophils 1.1 % (0.0-10.0); %Lymphocytes 15.6 % (21.0-51.0); %Monocytes 5.2 % (0.0-10.0); %Neutrophils 77.7 % (42.0-75.0); Hematocrit 34.4 % (36.0-47.0); Hemoglobin 11.1 g/dL (12.0-16.0); Mean Corpuscular HGB CONC 32.3 g/dL (32.0-36.0); Mean Corpuscular Hemoglobin 26.7 pg (27.0-31.0); Mean Corpuscular Volume 82.9 fl (78.0-98.0); Mean Platelet Volume 10.1 fL (7.4-10.4); Platelet Count 304 10x3/uL (130-400); RBC Distribution Width 15.4 % (11.5-14.5); Red Blood Cell (RBC) Count 4.15 mill/uL (4.20-5.40); White Blood Cell (WBC) Count 7.1 10x3/uL (4.8-10.8)
[2023-02-15] MEDS ORDERED: Morphine 4 MG/ML VIAL ONE (13:49)
[2023-02-15 13:51] LABS: ALT (SGPT) 12 U/L (8-55); AST (SGOT) 16 U/L (5-34); Albumin 4.5 g/dL (3.5-5.0); Alkaline Phosphatase 71 U/L (40-110); Anion Gap 14 mmol/L (10-20); BUN (Urea Nitrogen) 7 mg/dL (7.0-18.7); Bilirubin, Total 0.9 mg/dL (0.2-1.2); Calc. Creatinine Clearance 0 mL/min (70-130); Calcium 9.1 mg/dL (7.8-10.44); Carbon Dioxide 21 mmol/L (22-29); Chloride 103 mmol/L (98-107); Estimated GFR 124; Globulin 3.7 g/dL (2.4-3.5); Glucose 94 mg/dL (70-105); Lipase 24 U/L (8-78); Potassium 3.8 mmol/L (3.5-5.1); Protein, Total 8.2 g/dL (6.0-8.3); Sodium 134 mmol/L (136-145)
[2023-02-15 13:52] LABS: BHCG - Serum Negative (NEGATIVE); Pregs Control Background? CLEAR/WHITE (CLR/WHITE); Pregs Control Bar Appear? YES (CONTROL BAR)
[2023-02-15] MEDS ORDERED: Ketorolac Tromethamine 30 MG/ML VIAL ONE (14:16)
[2023-02-15 14:23] LABS: Bacteria/HPF None Seen HPF (None Seen); Bilirubin Negative (Negative); Blood, Urine Negative (Negative); CAUTI Indications for Culture Dysuria,urgency,freq; Clarity Clear (Clear); Glucose, Urine (Dipstick) Normal (Negative); Ketone, Urine Negative (Negative); Leukocyte Negative Leu/uL (Negative); Nitrite Negative (Negative); Protein, Urine (Dipstick) Negative (Neg-Trace); RBC/HPF 0-3 HPF (0-3); Specific Gravity, Urine 1.014 (1.002-1.036); Squamous Epithelial 0-3 HPF (0-3); Urobilinogen Normal mg/dL (Less than 2); WBC/HPF None Seen HPF (0-3)
[2023-02-15 14:24] LABS: Urine Culture Reflex No No
[2023-02-15] MEDS ORDERED: fentaNYL 50 mcg/mL 1 mL Vial ONE (15:12)
== END 2023-02-15 17:25 | disposition home or self-care (01) ==
LOC: ERS 12:47
DX: R10.9 Unspecified abdominal pain (principal); R11.0 Nausea; K21.9 Gastro-esophageal reflux disease without esophagitis; E03.9 Hypothyroidism, unspecified; F17.290 Nicotine dependence, other tobacco product, uncomplicated
CPT/HCPCS: 36415; 74177; 76856; 80053; 81001; 83690; 84703; 85025; 93976; 96374; 96375; J1885; J2270; J3010; Q0162; Q9967